=== PATIENT | male | born 1985 | race Asian ===

== ENCOUNTER → 2020-11-03 07:58 | Outpatient (CLI) | payer OTHER, SELFPAY ==
--- NOTE | 2020-11-03 | DI.CT.S_ITS ---
PROCEDURE: CT ABDOMEN PELVIS WO/W CON INDICATIONS: History of other diseases of urinary system TECHNIQUE: Optional 5 mm thick noncontrast images acquired from the diaphragm to the symphysis pubis. After the administration of intravenous contrast, 5 mm thick images acquired from the diaphragm to the symphysis pubis after a 10-minute delay. 2 mm thick coronal and sagittal reformats were then performed of the kidneys and ureters. For radiation dose reduction, the following was used: automated exposure control, adjustment of mA and/or kV according to patient size. COMPARISON: None. FINDINGS: Image quality: Excellent. Lung bases: Lung bases are clear. Heart size is normal. Urinary system: There is no hydronephrosis. There is a 3 mm nonobstructing right lower pole renal stone. There is no left hydronephrosis. There is a nonobstructing 5 x 12 mm left lower pole renal stone. No perinephric fat stranding. There is normal bilateral renal enhancement. Renal calyces appear normal in morphology when filled with contrast. Opacified portions of both ureters demonstrate normal caliber. Bladder wall thickness is normal. No calcified bladder stones. Other solid organs: Liver is normal in size and enhancement. Gallbladder is unremarkable . Biliary system is non dilated. Pancreas enhances normally. Spleen is normal in size and enhancement. No adrenal nodules. Peritoneum and bowel: Bowel loops demonstrate normal wall thickness and caliber. No free fluid or air. Nodes and vessels: No retroperitoneal or mesenteric adenopathy by size criteria. Aorta and inferior vena cava are normal in size. Abdominal wall: No ventral hernias. Pelvis: No pathologic free pelvic fluid. No inguinal hernias or adenopathy. Bones: No suspicious bony lesions. No vertebral body compression fractures. Mild S-shaped thoracolumbar scoliosis. IMPRESSION: 1. Bilateral nonobstructing renal stones. The left renal stone is 5 x 12 mm. The right renal stone is small. Dictated by: Ernie Eduardo M.D. on 11/03/2020 at 9:35 Approved by: Ernie Eduardo M.D. on 11/03/2020 at 9:48
== END ==
PROVIDERS: PCP Physician Assistant Medical; Referring Provider Urology; Visit Provider Urology
DX: N20.0 Calculus of kidney (principal); Z87.448 Personal history of other diseases of urinary system
CPT/HCPCS: 74178